=== PATIENT | female | born 1985 | race Caucasian/White ===

== ENCOUNTER 2016-09-22 12:08 | Outpatient (CLI) | payer OTHER, MEDICAID | END 2016-09-22 12:09 | disposition home or self-care (01) | DX: O13.3 Gestational [pregnancy-induced] hypertension without significant proteinuria, third trimester (principal) ==

== ENCOUNTER 2016-10-03 16:07 | Inpatient (IN) | payer OTHER, MEDICAID ==
[~2016-10-03 16:07] MED LIST: ONDANSETRON 4 MG/2 ML VIAL IVP PRN; OXYTOCIN/LACTATED RINGERS 250 ML IV SCH; PENICILLIN G POTASSIUM 5,000,000 UNIT in SODIUM CHLORIDE 0.9% MINIBAG 100 ML IV ONE; fentaNYL 100 MCG/2 ML VIAL IVP PRN
[2016-10-03] MEDS ORDERED: SODIUM CHLORIDE FLUSH 0.9% 10 ML SYRINGE IVP ONE (16:18)
[2016-10-03] MEDS: LACTATED RINGERS 1,000 ML IV SCH ×2 (16:40→21:02)
[2016-10-03] MEDS ORDERED: SUFENTA/BUPIV 0.4 MCG/0.0625% 150 ML EP ONE (20:42)
[2016-10-03] MEDS ORDERED: LABETALOL 100 MG TABLET PO SCH (21:00)
[2016-10-03] MEDS: PENICILLIN G POTASSIUM 2,500,000 UNIT in SODIUM CHLORIDE 0.9% 100ML 100 ML IV SCH (21:02)
[2016-10-03] MEDS ORDERED: METOCLOPRAMIDE 10 MG/2 ML VIAL IVP PRN (21:08)
[2016-10-03] MEDS ORDERED: ePHEDrine 50 MG/ML AMP IVP PRN (21:08)
[2016-10-03] MEDS ORDERED: NALBUPHINE 20 MG/ML AMP IVP PRN (21:08)
[2016-10-03] MEDS ORDERED: NALOXONE 0.4 MG/ML VIAL IVP PRN (21:08)
[2016-10-03] MEDS ORDERED: LACTATED RINGERS 500 ML IV SCH (21:08)
[2016-10-03] MEDS ORDERED: ROPIVACAINE 0.2% PF 20 ML AMPULE SUBQ ONE (21:08)
[2016-10-03] MEDS ORDERED: SUFENTA/BUPIV 0.4 MCG/0.0625% EPIDURAL 150 ML EP PRN (21:08)
[2016-10-03] MEDS ORDERED: ONDANSETRON 4 MG/2 ML VIAL IVP PRN (21:08)
[2016-10-03] MEDS ORDERED: diphenhydrAMINE INJ 50 MG/ML VIAL IVP PRN (21:08)
[2016-10-03] MEDS ORDERED: OXYTOCIN/LACTATED RINGERS 250 ML IV SCH (23:00)
[2016-10-04] MEDS ORDERED: LIDOCAINE 1% 50 ML MDV ONE (00:54)
[2016-10-04] MEDS ORDERED: WITCH HAZEL/GLYCERIN 1 EACH MED..PAD TOP PRN (01:21)
[2016-10-04] MEDS ORDERED: OXYTOCIN/LACTATED RINGERS 250 ML IV SCH (01:21)
[2016-10-04] MEDS ORDERED: HYDROcod/ACETAM 5/325 MG TABLET PO PRN (01:21)
[2016-10-04] MEDS ORDERED: SIMETHICONE CHEW 80 MG TABLET PO PRN (01:21)
[2016-10-04] MEDS ORDERED: HYDROCORTISONE/PRAMOXINE 10 GM PR PRN (01:21)
[2016-10-04] MEDS ORDERED: MAGNESIUM HYDROXIDE 2,400 MG/30 ML UDC PO PRN (01:21)
[2016-10-04] MEDS: IBUPROFEN 800 MG TABLET PO SCH ×4 (03:01→20:49)
[2016-10-04] MEDS: ACETAMINOPHEN 325 MG TABLET PO SCH (06:26)
[2016-10-04] MEDS: PENICILLIN G POTASSIUM 2,500,000 UNIT in SODIUM CHLORIDE 0.9% 100ML 100 ML IV SCH (08:19)
[2016-10-04] MEDS ORDERED: ACETAMINOPHEN 325 MG TABLET PO PRN (08:38)
[2016-10-04] MEDS: DOCUSATE SODIUM 100 MG CAPSULE PO SCH ×2 (08:48→20:48)
[2016-10-04] MEDS: LACTATED RINGERS 1,000 ML IV SCH (13:56)
[2016-10-05] MEDS: IBUPROFEN 800 MG TABLET PO SCH ×2 (03:14→10:48)
[2016-10-05] MEDS: DOCUSATE SODIUM 100 MG CAPSULE PO SCH (10:47)
== END 2016-10-05 11:10 | disposition home or self-care (01) | DRG 775 ==
PROC: 10907ZC Drainage of Amniotic Fluid, Therapeutic from Products of Conception, Via Natural or Artificial Opening (ICD-10-PCS; 2016-10-03)
PROC: 10E0XZZ Delivery of Products of Conception, External Approach (ICD-10-PCS; principal; 2016-10-04)
DX: O13.3 Gestational [pregnancy-induced] hypertension without significant proteinuria, third trimester (principal); O99.824 Streptococcus B carrier state complicating childbirth; Z3A.39 39 weeks gestation of pregnancy; Z37.0 Single live birth

== ENCOUNTER 2017-01-04 07:17 | Emergency (ER) | payer OTHER, MEDICAID | END 2017-01-04 11:16 | disposition home or self-care (01) | DX: K80.20 Calculus of gallbladder without cholecystitis without obstruction (principal) ==

== ENCOUNTER 2017-01-12 08:48 | Day surgery (SDC) | payer OTHER, MEDICAID ==
[2017-01-12] MEDS ORDERED: LACTATED RINGERS 1,000 ML IV ONE ×2 (09:19→11:06)
[2017-01-12] MEDS ORDERED: LIDOCAINE 1% 50 ML MDV SUBQ ONE ×2 (10:42)
[2017-01-12] MEDS ORDERED: BUPIVACAINE 0.5%-EPI 1:200000 PF 30 ML VIAL SUBQ ONE ×2 (10:42)
[2017-01-12] MEDS ORDERED: LIDOCAINE-MPF 2% 5 ML VIAL IM ONE (11:00)
[2017-01-12] MEDS ORDERED: ACETAMINOPHEN 1,000 MG/100 ML VIAL IV ONE (11:00)
[2017-01-12] MEDS ORDERED: MIDAZOLAM 2 MG/2 ML VIAL IVP ONE (11:00)
[2017-01-12] MEDS ORDERED: DEXAMETHASONE 4 MG/ML VIAL IVP ONE (11:00)
[2017-01-12] MEDS ORDERED: NEOSTIGMINE 1 MG/1 ML 10 ML MDV IVP ONE (11:00)
[2017-01-12] MEDS ORDERED: SUCCINYLCHOLINE 200 MG/10 ML VIAL IVP ONE (11:00)
[2017-01-12] MEDS ORDERED: GLYCOPYRROLATE 1 MG/5 ML VIAL IVP ONE (11:00)
[2017-01-12] MEDS ORDERED: PROPOFOL 200 MG/20 ML VIAL IVP ONE (11:00)
[2017-01-12] MEDS ORDERED: ROCURONIUM 50 MG/5 ML VIAL IVP ONE (11:00)
[2017-01-12] MEDS ORDERED: ceFAZolin 1 GM VIAL IV ONE (11:00)
[2017-01-12] MEDS: HYDROmorphone 1 MG/ML SYRINGE ONE ×2 (12:05→12:14)
[2017-01-12] MEDS ORDERED: oxyCOD/ACETAMIN 5 MG/325 MG TABLET PO ONE (12:29)
== END 2017-01-12 08:49 | disposition home or self-care (01) ==
PROC: 0FT44ZZ Resection of Gallbladder, Percutaneous Endoscopic Approach (ICD-10-PCS; principal; 2017-01-12 10:45)
DX: K80.10 Calculus of gallbladder with chronic cholecystitis without obstruction (principal); Z88.2 Allergy status to sulfonamides
CPT/HCPCS: 47562; 81025; A9270; J0131; J1170; J7120

== ENCOUNTER 2018-02-13 08:00 | Outpatient (CLI) | payer OTHER, MEDICAID ==
[2018-02-13 12:52] LABS: BASOPHILS # (AUTO) 0.1 10^3/uL (0.0-0.1); BASOPHILS % (AUTO) 0.8 %; EOSINOPHILS # (AUTO) 0.3 10^3/uL (0.0-0.7); EOSINOPHILS % (AUTO) 4.5 %; HGB - HEMOGLOBIN 13.3 g/dL (12.0-16.0); LYMPHOCYTES # (AUTO) 2.1 10^3/uL (1.5-3.5); LYMPHOCYTES % (AUTO) 31.6 %; MEAN CORPUSCULAR HEMOGLOBIN 29.5 pg (27.0-31.0); MEAN CORPUSCULAR HGB CONC 33.6 g/dL (32.0-36.0); MEAN CORPUSCULAR VOLUME 87.6 fL (81.0-99.0); MEAN PLATELET VOLUME 8.6 fL (7.9-10.8); MONOCYTES # (AUTO) 0.6 10^3/uL (0.0-1.0); MONOCYTES % (AUTO) 8.6 %; NEUTROPHILS # (AUTO) 3.6 10^3/uL (1.5-6.6); NEUTROPHILS % (AUTO) 54.5 %; PLT - PLATELET COUNT 269 10^3/uL (130-450); RED CELL DISTRIBUTION WIDTH 13.5 % (12.0-15.0); WHITE BLOOD COUNT 6.7 x10^3/uL (4.8-10.8)
[2018-02-13 13:18] LABS: THYROID STIMULATING HORMONE 4.39 uIU/mL (0.34-5.60)
[2018-02-13 13:20] LABS: FREE T4 (FREE THYROXINE) 0.73 ng/dL (0.58-1.64)
[2018-02-13 13:23] LABS: FERRITIN 24.1 ng/mL (11.0-306.8)
== END 2018-02-13 08:01 | disposition home or self-care (01) ==
LOC: LAB.WCP 08:00
PROVIDERS: ATTEND Family Medicine
DX: L65.9 Nonscarring hair loss, unspecified (principal)
CPT/HCPCS: 36415; 82728; 84439; 84443; 84481; 85025; 86140

== ENCOUNTER 2018-09-30 14:00 | Outpatient (CLI) | payer OTHER, MEDICAID | END 2018-09-30 23:59 | LOC: LAB.WCP 14:00 | PROVIDERS: ATTEND Family Medicine | DX: E05.90 Thyrotoxicosis, unspecified without thyrotoxic crisis or storm (principal) | CPT/HCPCS: 36415; 84443; 84481 ==

== ENCOUNTER 2018-10-15 07:59 | Outpatient (CLI) | payer OTHER, MEDICAID ==
--- NOTE | 2018-10-15 12:38 | Ultrasound Report ---
Reason: HYPERTHYROIDISM Procedure Date: 10/15/2018 Accession Number: [id number] / [id number] Procedure: US - Head or Neck Soft Tissue CPT Code: FULL RESULT: EXAM: THYROID ULTRASOUND EXAM DATE: 10/15/2018 08:40 AM. CLINICAL HISTORY: Hyperthyroidism. COMPARISON: None. TECHNIQUE: Real time sonographic imaging of the thyroid was performed by the anode crew supervisor. Multiple operations representative static images were saved for review. FINDINGS: THYROID GLAND: Right Lobe: 4.3 x 1.3 x 1.4 cm, volume 4.1 cc. Normal background echotexture. Right Lobe Nodules: 0.8 x 0.5 x 0.7 cm complex heterogeneous upper pole nodule laterally and a 0.6 x 0.4 x 0.6 cm solid upper pole nodule near the isthmus. The lower pole demonstrates a 0.8 x 0.6 x 0.7 cm solid mildly hypoechoic nodule. Left Lobe: 3.9 x 1.2 x 1.1 cm, volume 2.7 cc. Normal background echotexture. Left Lobe Nodules: Upper pole hypoechoic 0.7 x 0.4 x 0.6 cm solid nodule with increased vascularity and lower pole 0.8 x 0.7 x 0.7 cm hypoechoic nodule. Isthmus: 0.3 cm AP. Isthmic Nodules: None. LYMPH NODES: No adenopathy demonstrated in the central or lateral compartment. OTHER: None. IMPRESSION: Multiple small bilateral thyroid nodules amenable to ultrasound follow-up. Management recommendations are based on 2015 [place] [employer] Management Guidelines for Adult Patients with Thyroid Nodules and Differentiated Thyroid Cancer. RADIA
== END 2018-10-15 08:00 | disposition home or self-care (01) ==
LOC: DI 07:59
PROVIDERS: ATTEND Family Medicine
DX: E04.2 Nontoxic multinodular goiter (principal); E05.90 Thyrotoxicosis, unspecified without thyrotoxic crisis or storm
CPT/HCPCS: 76536

== ENCOUNTER 2018-10-23 13:38 | Outpatient (CLI) | payer OTHER, MEDICAID ==
[2018-10-23 19:49] LABS: THYROID STIMULATING HORMONE 1.53 uIU/mL (0.34-5.60)
[2018-10-23 19:51] LABS: FREE T4 (FREE THYROXINE) 0.86 ng/dL (0.58-1.64)
== END 2018-10-23 13:39 | disposition home or self-care (01) ==
LOC: LAB.WCP 13:38
PROVIDERS: ATTEND Family Medicine
DX: E05.90 Thyrotoxicosis, unspecified without thyrotoxic crisis or storm (principal)
CPT/HCPCS: 36415; 84439; 84443; 84481; 84482

== ENCOUNTER 2019-06-16 08:00 | Outpatient (CLI) | payer OTHER, MEDICAID | END 2019-06-16 08:01 | disposition home or self-care (01) | LOC: LAB.WCP 08:00 | PROVIDERS: ATTEND Family Medicine | DX: E05.90 Thyrotoxicosis, unspecified without thyrotoxic crisis or storm (principal) | CPT/HCPCS: 36415; 84439; 84443; 84481 ==

== ENCOUNTER 2020-08-17 17:28 | Outpatient (CLI) | payer OTHER ==
--- NOTE | 2020-08-17 17:30 | XRAY Report ---
PROCEDURE: Finger(s) RT INDICATIONS: CRUSHING INJURY OF 5TH DIGIT TECHNIQUE: AP hand, 2 views of the fifth finger(s) acquired. COMPARISON: None FINDINGS: Bones: No fractures or dislocations. No suspicious bony lesions. Soft tissues: No suspicious soft tissue calcifications. IMPRESSION: No acute fifth digit fracture or dislocation. Reviewed by: Osman Mahan MD on 08/17/2020 5:28 PM PST Approved by: Osman Mahan MD on 08/17/2020 5:28 PM PST Station ID: [id number]
== END 2020-08-23 23:59 | disposition home or self-care (01) ==
LOC: DI.N 17:28
PROVIDERS: ATTEND Nurse Practitioner
DX: S67.196A Crushing injury of right little finger, initial encounter (principal)

== ENCOUNTER 2021-01-20 08:00 | Outpatient (CLI) | payer OTHER ==
[2021-01-20 19:04] LABS: ALBUMIN 4.7 g/dL (3.2-5.5); ALBUMIN/GLOBULIN RATIO 1.4 (1.0-2.2); BILIRUBIN,TOTAL 0.7 mg/dL (0.2-1.0); CALCIUM 9.9 mg/dL (8.5-10.3); CREATININE 0.7 mg/dL (0.4-1.0); POTASSIUM 4.4 mmol/L (3.5-5.0); TOTAL PROTEIN 8.1 g/dL (6.7-8.2)
[2021-01-20 19:22] LABS: BASOPHILS % (AUTO) 0.5 %; EOSINOPHILS # (AUTO) 0.1 10^3/uL (0.0-0.7); EOSINOPHILS % (AUTO) 1.1 %; HCT - HEMATOCRIT 42.4 % (37.0-47.0); HGB - HEMOGLOBIN 13.4 g/dL (12.0-16.0); LYMPHOCYTES # (AUTO) 1.6 10^3/uL (1.5-3.5); LYMPHOCYTES % (AUTO) 19.5 %; MEAN CORPUSCULAR HEMOGLOBIN 29.3 pg (27.0-31.0); MEAN CORPUSCULAR HGB CONC 31.6 g/dL (32.0-36.0); MEAN CORPUSCULAR VOLUME 92.8 fL (81.0-99.0); MEAN PLATELET VOLUME 10.9 fL (7.9-10.8); MONOCYTES # (AUTO) 0.7 10^3/uL (0.0-1.0); MONOCYTES % (AUTO) 7.9 %; NEUTROPHILS # (AUTO) 5.8 10^3/uL (1.5-6.6); NEUTROPHILS % (AUTO) 70.5 %; PLT - PLATELET COUNT 339 10^3/uL (130-450); RED BLOOD COUNT 4.57 10^6/uL (4.20-5.40); RED CELL DISTRIBUTION WIDTH 12.7 % (12.0-15.0); WHITE BLOOD COUNT 8.3 x10^3/uL (4.8-10.8)
[2021-01-20 19:31] LABS: THYROID STIMULATING HORMONE 2.77 uIU/mL (0.34-5.60)
[2021-01-20 19:33] LABS: FREE T3 4.28 pg/mL (2.5-3.9); FREE T4 (FREE THYROXINE) 0.7 ng/dL (0.58-1.64)
[2021-01-20 19:38] LABS: FERRITIN 33.4 ng/mL (11.0-306.8)
== END 2021-01-20 23:59 | disposition home or self-care (01) ==
LOC: LAB.WCP 08:00
PROVIDERS: ATTEND Family Medicine
DX: L65.9 Nonscarring hair loss, unspecified (principal); E05.90 Thyrotoxicosis, unspecified without thyrotoxic crisis or storm
CPT/HCPCS: 36415; 80053; 81599; 82728; 83520; 84439; 84443; 84481; 85025